=== PATIENT | female | born 2000 | race Caucasian/White ===

== ENCOUNTER → 2022-04-26 | Outpatient (CLI) | payer OTHER ==
--- NOTE | 2022-04-26 12:34 | US ---
EXAMINATION TYPE: US gallbladder DATE OF EXAM: 04/26/2022 COMPARISON: NONE CLINICAL HISTORY: R10.11 right upper quad pain. TECHNIQUE: Multiple sonographic images of the right upper quadrant are obtained. FINDINGS: EXAM MEASUREMENTS: Liver Length: 11.7 cm Gallbladder Wall: 0.3 cm CBD: 0.5 cm Right Kidney: 11.0 x 3.5 x 5.3 cm Pancreas: Obscured by bowel gas Liver: wnl , no concerning mass. Echogenicity is within normal limits. Gallbladder: No stones seen. No pericholecystic fluid or wall thickening. Evidence for sonographic Bowen's sign: No CBD: wnl Right Kidney: No hydronephrosis or masses seen. No shadowing calculi. IMPRESSION: Unremarkable right upper quadrant ultrasound.
== END | disposition home or self-care (01) ==
LOC: RADUSWWP 12:09
PROVIDERS: ATTEND Surgery Plastic and Reconstructive Surgery
DX: R10.11 Right upper quadrant pain (principal)
CPT/HCPCS: 76705

== ENCOUNTER → 2022-05-20 | Outpatient (CLI) | payer OTHER ==
--- NOTE | 2022-05-20 15:24 | NM ---
EXAMINATION TYPE: NM hepatobiliary w EF DATE OF EXAM: 05/20/2022 COMPARISON: Gallbladder ultrasound 04/26/2022 HISTORY: K82.8 DISEASES OF GALLBLADDER TECHNIQUE: After the intravenous administration of 4.26 mCi Tc 99m Mebrofenin hepatobiliary scintigra phy is performed. Immediate images post injection. FINDINGS: There is satisfactory initial accumulation of tracer by the liver. The gallbladder is visualized wit hin 8 minutes. The small bowel activity is noted within 22 minutes. At one hour 8 ounces of oral en sure plus is given to mimic CCK and gallbladder ejection fraction is calculated at 25 %, which is abn ormal. Therefore there is no scintigraphic evidence of cystic or common bile duct obstruction to sug gest acute cholecystitis. IMPRESSION: 1. No evidence for cystic duct obstruction. 2. Gallbladder ejection fraction of 25% consistent with gallbladder dyskinesia.
== END | disposition home or self-care (01) ==
LOC: RADNMMAIN 13:01
PROVIDERS: ATTEND Surgery Plastic and Reconstructive Surgery
DX: K82.8 Other specified diseases of gallbladder (principal)
CPT/HCPCS: 78226; A9537

== ENCOUNTER → 2022-06-22 | Outpatient (CLI) | payer OTHER ==
[2022-06-22 18:37] LABS: HCT 37.9 % (37.2-46.3); HGB 12.5 g/dL (12.0-15.0); MCH 27.6 pg (27.0-32.0); MCV 83.7 fL (80.0-97.0); Mean Platelet Volume 11.7 fL (9.5-12.2); NRBC Per 100 WBC 0 /100 WBCS (0.0-0.0); Platelet Count 285 X 10*3/uL (140-440); RBC 4.53 X 10*6/uL (4.10-5.20); RDW 13.5 % (11.5-14.5); WBC 7.07 X 10*3/uL (4.50-10.00)
== END | disposition home or self-care (01) ==
LOC: LABPAT 13:10
PROVIDERS: ATTEND Anesthesiology
DX: Z01.812 Encounter for preprocedural laboratory examination (principal)
CPT/HCPCS: 85027

== ENCOUNTER 2022-06-25 08:24 | Day surgery (SDC) | payer OTHER ==
[2022-06-21 15:08] VITALS: BMI 42.3
--- NOTE | 2022-06-25 05:40 | P.GSHP ---
History of Present Illness H&P Date: 06/25/22 CHIEF COMPLAINT: Cholecystitis HISTORY OF PRESENT ILLNESS: The patient is a 21-year-old female who presents with history of epigastric including right upper quadrant abdominal pain. She underwent diagnostic studies for her gallbladder. Separately her clinical picture was consistent with cholecystitis. Now she presents for surgical intervention. PAST MEDICAL HISTORY: Please see list PAST SURGICAL HISTORY: Please see list MEDICATIONS: Please see list ALLERGIES: Please see list SOCIAL HISTORY: Please see list FAMILY HISTORY: Please see list REVIEW OF ORGAN SYSTEMS: CONSTITUTIONAL: No reports of fevers or chills. HEENT: Denies any troubles with the vision or hearing. ENDOCRINE: No reports of hypothyroidism. No diabetes. RESPIRATORY: No recent pneumonias. CARDIOVASCULAR: Denies chest pain or palpitations GI: No blood in stools or constipation. MUSCULOSKELETAL: Has occasional joint pain including back pain. NEURO: No seizure disorders or headaches. No recent stroke. PSYCH: No depression or suicidal ideation. GENITOURINARY: No active blood in urine. No urinary hesitancy. HEMATOLOGIC: No personal or family history of DVTs or pulmonary emboli. SKIN: No skin cancer. PHYSICAL EXAM: VITAL SIGNS: Afebrile vital signs stable GENERAL: Well-developed pleasant in no acute distress. HEENT: No scleral icterus. Extraocular movements grossly intact. Moist buccal mucosa. NECK: Supple without lymphadenopathy. CHEST: Unlabored respirations. Equal bilateral excursions. CARDIOVASCULAR: Regular rate regular rhythm rhythm. Distal 2+ pulses. ABDOMEN: Soft, nondistended. Tender along the epigastrium and right upper quadrant. MUSCULOSKELETAL: No clubbing, cyanosis, or edema. NEURO: Cranial nerves II to XII within normal limits. No focal or lateralizing signs. PSYCH: Alert and oriented to person, place and time. SKIN: Well-perfused good skin turgor. ASSESSMENT: 1. Epigastric and right upper quadrant abdominal pain 2. Chronic cholecystitis 3. Symptomatic gallstones. PLAN: 1. Will need a robotic cholecystectomy possible open. Benefits and risks were described. 2. Heparin for DVT prophylaxis 5000 units. 3. Antibiotic prophylaxis. 4. CBC and CMP on day of procedure 5. Non-narcotic pre and post op pain management reviewed. 6. Indocyanine green for biliary imaging. Past Medical History Past Medical History: GERD/Reflux Additional Past Medical History / Comment(s): Gallbladder disorder. History of Any Multi-Drug Resistant Organisms: None Reported Past Surgical History: No Surgical Hx Reported Past Anesthesia/Blood Transfusion Reactions: No Reported Reaction Past Psychological History: No Psychological Hx Reported Smoking Status: Never smoker Past Alcohol Use History: None Reported Past Drug Use History: None Reported - Past Family History Brother(s) Family Medical History: Cancer Medications and Allergies Home Medications Medication Instructions Recorded Confirmed Type Etonogestrel/Ethinyl Estradiol 1 ring VAGINAL Q30D 05/31/22 06/21/22 History [Nuvaring Vaginal Ring] Omeprazole 40 mg PO QAM 05/31/22 06/21/22 History Allergies Allergy/AdvReac Type Severity Reaction Status Date / Time No Known Allergies Allergy Verified 06/21/22 14:56
[~2022-06-25 08:24] MED LIST: ACETAMINOPHEN TAB 500 MG TAB PO PRN; DEXAMETHASONE SOD PHOSPHATE 4 MG/ML 1 ML VIAL IV ONE; GABAPENTIN 300 MG CAP PO PRN; HEPARIN SODIUM,PORCINE/PF 5,000 UNIT/0.5 ML SYRINGE SQ PRN; INDOCYANINE GREEN 25 MG VIAL IV PRN; INDOCYANINE GREEN 25 MG VIAL IV STA; LACTATED RINGERS 1,000 ML IV SCH; MELOXICAM 7.5 MG TAB PO PRN; MIDAZOLAM 2 MG/2 ML VIAL IV PRN; ONDANSETRON 4 MG/2 ML VIAL IVP ONE; SCOPOLAMINE 1 MG/72 HR PATCH TRANSDERM ONE; SCOPOLAMINE 1 MG/72 HR PATCH TRANSDERM PRN; ceFAZolin 3 GM in SODIUM CHLORIDE 0.9% 100 ML IVPB PRN
[2022-06-25] MEDS ORDERED: LIDOCAINE 1% (10MG/ML) FOR IV START INTRADERMA ONE (09:15)
[2022-06-25 09:26] LABS: Basophils % (A) 0 %; Eosinophils # (A) 0.1 k/uL (0-0.7); Eosinophils % (A) 2 %; HCT 37.6 % (34.0-46.0); HGB 12.9 gm/dL (11.4-16.0); Lymphocytes # (A) 1.6 k/uL (1.0-4.8); Lymphocytes % (A) 29 %; MCH 28.1 pg (25.0-35.0); MCHC 34.4 g/dL (31.0-37.0); MCV 81.7 fL (80.0-100.0); Mean Platelet Volume 8.5; Monocytes # (A) 0.3 k/uL (0-1.0); Monocytes % (A) 5 %; Neutrophils # (A) 3.5 k/uL (1.3-7.7); Neutrophils % (A) 62 %; Platelet Count 237 k/uL (150-450); RDW 13.3 % (11.5-15.5); WBC 5.6 k/uL (3.8-10.6)
[2022-06-25 09:39] LABS: ALT 17 U/L (4-34); AST 19 U/L (14-36); African American GFR (CKD) >90 (>60 ml/min/1.73 sqM); Albumin 3.9 g/dL (3.5-5.0); Alkaline Phosphatase 77 U/L (38-126); Anion Gap 4 mmol/L; Blood Urea Nitrogen 13 mg/dL (7-17); Calcium 8.9 mg/dL (8.4-10.2); Carbon Dioxide 26 mmol/L (22-30); Chloride 109 mmol/L (98-107); Glucose 86 mg/dL (74-99); Non-African American GFR(CKD) >90 (>60 ml/min/1.73 sqM); Potassium 3.9 mmol/L (3.5-5.1); Sodium 139 mmol/L (137-145); Total Bilirubin 0.8 mg/dL (0.2-1.3); Total Protein 6.7 g/dL (6.3-8.2)
[2022-06-25] MEDS ORDERED: PROPOFOL 10 MG/ML 20 ML VIAL IV ONE (10:59)
[2022-06-25] MEDS ORDERED: fentaNYL (PF) 50 MCG/ML 2 ML AMP ONE (10:59)
[2022-06-25] MEDS ORDERED: SUCCINYLCHOLINE CHLORIDE 200 MG/10 ML VIAL IV ONE (10:59)
[2022-06-25] MEDS ORDERED: ROCURONIUM 10 MG/ML (5 ML VIAL) IV ONE (10:59)
[2022-06-25] MEDS ORDERED: GLYCOPYRROLATE 0.2 MG/ML 2 ML VIAL ONE (10:59)
[2022-06-25] MEDS ORDERED: HYDROmorphone (PF) 1 MG/ML ONE (10:59)
[2022-06-25] MEDS ORDERED: KETOROLAC 15 MG/ML 1 ML VIAL ONE (10:59)
[2022-06-25] MEDS ORDERED: LIDOCAINE 2% INJ 20 MG/ML (2 ML VIAL) ONE (10:59)
[2022-06-25] MEDS ORDERED: MIDAZOLAM 2 MG/2 ML VIAL ONE (10:59)
[2022-06-25] MEDS ORDERED: NEOSTIGMINE 1 MG/ML 10 ML VIAL ONE (10:59)
[2022-06-25] MEDS ORDERED: LIDOCAINE 1%-EPI 1:100,000 20 ML VIAL SQ ONE ×2 (11:14→11:24)
[2022-06-25] MEDS ORDERED: LACTATED RINGERS 1,000 ML IV ONE (12:00)
[2022-06-25 12:24] VITALS: TEMP 97.9
[2022-06-25] MEDS: HYDROmorphone 0.5 MG/0.5 ML SYRINGE IVP PRN ×2 (12:36→12:50)
--- NOTE | 2022-06-25 12:39 | P.OP ---
Date of Procedure: 06/25/22 Description of Procedure: SURGEON: VERONICA CARBALLO MD PREOPERATIVE DIAGNOSES: 1. Chronic cholecystitis 2. Right upper quadrant abdominal pain 3. Family history gallbladder disease 4. Gastroesophageal reflux disease 5. Morbid obesity due to excess calories, BMI 42.2 POSTOPERATIVE DIAGNOSES: 1. Chronic cholecystitis 2. Right upper quadrant abdominal pain 3. Family history gallbladder disease 4. Gastroesophageal reflux disease 5. Morbid obesity due to excess calories, BMI 42.2 OPERATION: Robotic-assisted da Essie Xi laparoscopic cholecystectomy, multiport with FIREFLY ESTIMATED BLOOD LOSS: 5 mL. SPECIMENS REMOVED: Gallbladder. COMPLICATIONS: None. OPERATIVE FINDINGS: 1. Common bile duct within normal limits INDICATIONS: The patient is a 21-year-old female who presents with chronic cholecystitis. Robotic assisted laparoscopic approach was described. Benefits and risks of the procedure including but not limited to bleeding, infection, injury to the biliary tree was described. Informed consent was obtained. DESCRIPTION OF PROCEDURE: Patient was brought to the operating room, placed in supine position. After general induction, the abdomen had been prepped and draped in standard sterile fashion. The robotic da Essie XI system was primed. After a timeout protocol was performed, the patient had been prepped and draped in standard sterile fashion. The patient was injected with indocyanine green. A 5 mm 0 degrees laparoscopic trocar entry was performed along the left upper quadrant. The abdomen insufflated to 15 mmHg pressure which was tolerated well. Diagnostic laparoscopy demonstrated no injury to bowel viscera or mesentery. The liver surface was unremarkable. Next, two 8 mm robotic ports were placed along the right upper abdomen. The camera 8-mm port was maintained along the epigastrium. Another 8 mm port was placed along the left upper abdominal wall. Please note that the ports were placed at least 10 to 15 cm away from the target anatomy of the gallbladder. The robot was docked along the left lateral abdomen. The patient was repositioned in reverse Trendelenburg position. Using a grasper for arm 3, a grasper for arm 4, including hook cautery for arm 1, the robotic system was docked and primed as described. Instruments were interchanged by the customer care assistant including hook cautery, Bovie cautery and clip appliers. I had sat at the console. Next attention was brought to the infundibulum and cystic structures. The infundibulum and cystic duct were dissected free from surrounding tissues. The cystic duct was isolated. FIREFLY was used to identify the cystic artery and cystic structures. A critical view of safety was obtained. Large PLASTIC clips were used throughout the entire case. Using a clip tire changer aircraft, 2 clips were placed at the junction of the infundibulum and cystic duct. The cystic duct was divided between clips. Next, the cystic artery was similarly clipped and cauterized. Electro-Bovie cautery was used to remove the gallbladder from the hepatic fossa. Hemostasis was checked and found to be adequate. The robot was undocked. I re-scrubbed into the case. Using a 10 mm Endo Catch bag via the left upper quadrant incision, the specimen was removed from the abdominal cavity. All pneumoperitoneum instruments were evacuated from the abdominal cavity. The incisions were reapproximated using 4-0 Monocryl in an interrupted subcuticular fashion. Fascial defects were less than 8 mm in size. Please note along the trocar sites, local anesthetic was placed as a field block prior to insertion of all instruments. Liquid glue was applied to the skin. At the end of the procedure needle, sponge, and instrument count had been verified correct by the surgical dressing maker. The patient was transferred to postanesthesia care unit in stable condition. Intraoperative films were shared with the patient's family. Plan - Discharge Summary Discharge Rx Participant: No New Discharge Prescriptions: New Ibuprofen [Motrin] 600 mg PO Q8HR PRN #30 tab PRN Reason: Pain Simethicone [Gas-X] 125 mg PO AC-TID PRN #20 capsule PRN Reason: Pain Acetaminophen Tab [Tylenol Tab] 1,000 mg PO Q6HR PRN #30 tablet PRN Reason: Pain Continue Omeprazole 40 mg PO QAM Etonogestrel/Ethinyl Estradiol [Nuvaring Vaginal Ring] 1 ring VAGINAL Q30D Discharge Medication List Etonogestrel/Ethinyl Estradiol [Nuvaring Vaginal Ring] 1 ring VAGINAL Q30D 05/31/22 [History] Omeprazole 40 mg PO QAM 05/31/22 [History] Acetaminophen Tab [Tylenol Tab] 1,000 mg PO Q6HR PRN #30 tablet 06/25/22 [Rx] Ibuprofen [Motrin] 600 mg PO Q8HR PRN #30 tab 06/25/22 [Rx] Simethicone [Gas-X] 125 mg PO AC-TID PRN #20 capsule 06/25/22 [Rx] Follow up Appointment(s)/Referral(s): Veronica Carballo MD [STAFF PHYSICIAN] - 06/29/22 ([facility]) Patient Instructions/Handouts: *[facility] - Scopalamine Patch Instructions, Low Fat Diet (DC), *[facility] - Laparoscopic Cholecystectomy Discharge Instructions, *[facility] - Managing Your Pain After Surgery Without Opioids Activity/Diet/Wound Care/Special Instructions: Recommend low-fat diet for the next 2 days. No lifting over 10 pounds in 2 weeks until Jul 09. December shower. No bath tub soaks for two weeks until Jul 09 Diet as tolerated. Use Tylenol, simethicone and ibuprofen or Aleve scheduled for the next 24-48 hours for best pain relief. Use ice along incisions for today to prevent swelling. Discharge Disposition: HOME SELF-CARE
[2022-06-25 12:47] VITALS: RESP 16
[2022-06-25 13:50] VITALS: BP 116/78; PULSE 52
== END 2022-06-25 15:25 | disposition home or self-care (01) ==
LOC: OR 08:24
PROVIDERS: ATTEND Surgery Plastic and Reconstructive Surgery
DX: K81.1 Chronic cholecystitis (principal); K21.9 Gastro-esophageal reflux disease without esophagitis; E66.01 Morbid (severe) obesity due to excess calories; Z68.41 Body mass index [BMI] 40.0-44.9, adult; Z79.3 Long term (current) use of hormonal contraceptives
CPT/HCPCS: 81025; 88304; 80053; 85025; 47563; J2250; J0330; J1100; J2710; J0690; J2405; J3010; J1170 ×2; J1885; J2704; J2001

== ENCOUNTER 2023-01-12 09:24 | Day surgery (SDC) | payer OTHER ==
[~2023-01-12 09:24] MED LIST changes: -ACETAMINOPHEN TAB 500 MG TAB PO PRN; -DEXAMETHASONE SOD PHOSPHATE 4 MG/ML 1 ML VIAL IV ONE; -GABAPENTIN 300 MG CAP PO PRN; -HEPARIN SODIUM,PORCINE/PF 5,000 UNIT/0.5 ML SYRINGE SQ PRN; -INDOCYANINE GREEN 25 MG VIAL IV PRN; -INDOCYANINE GREEN 25 MG VIAL IV STA; +LIDOCAINE 1% (10MG/ML) FOR IV START INTRADERMA PRN; -MELOXICAM 7.5 MG TAB PO PRN; -MIDAZOLAM 2 MG/2 ML VIAL IV PRN; -ONDANSETRON 4 MG/2 ML VIAL IVP ONE; -SCOPOLAMINE 1 MG/72 HR PATCH TRANSDERM ONE; -SCOPOLAMINE 1 MG/72 HR PATCH TRANSDERM PRN; -ceFAZolin 3 GM in SODIUM CHLORIDE 0.9% 100 ML IVPB PRN
--- NOTE | 2023-01-12 09:48 | P.GSHP ---
History of Present Illness H&P Date: 01/12/23 CHIEF COMPLAINT: GERD and colon screen HISTORY OF PRESENT ILLNESS: The patient is a 22-year-old female who presents with gastroesophageal reflux disease and change in bowel habits Upper and lower endoscopy were offered for further evaluation and management. PAST MEDICAL HISTORY: Please see list. PAST SURGICAL HISTORY: Please see list. MEDICATIONS: Please see list. ALLERGIES: Please see list. SOCIAL HISTORY: No illicit drug use FAMILY HISTORY: No reports of Crohn disease or ulcerative colitis. REVIEW OF ORGAN SYSTEMS: CONSTITUTIONAL: No reports of fevers or chills. GI: Denies any blood in stools or constipation. PHYSICAL EXAM: VITAL SIGNS: Stable GENERAL: Well-developed pleasant in no acute distress. HEENT: No scleral icterus. Extraocular movements grossly intact. Moist buccal mucosa. NECK: Supple without lymphadenopathy. CHEST: Unlabored respirations. Equal bilateral excursions. CARDIOVASCULAR: Regular rate and rhythm. Distal 2+ pulses. ABDOMEN: Soft, nondistended. MUSCULOSKELETAL: No clubbing, cyanosis, or edema. ASSESSMENT: 1. Gastroesophageal reflux disease 2. Change in bowel habits PLAN: 1. Recommend proceeding with an upper and lower endoscopy Past Medical History Past Medical History: GERD/Reflux History of Any Multi-Drug Resistant Organisms: None Reported Past Surgical History: Cholecystectomy Past Anesthesia/Blood Transfusion Reactions: No Reported Reaction Smoking Status: Never smoker - Past Family History Father Family Medical History: Cancer Additional Family Medical History / Comment(s): pancreatic Medications and Allergies Home Medications Medication Instructions Recorded Confirmed Type Etonogestrel/Ethinyl Estradiol 1 ring VAGINAL Q30D 05/31/22 01/12/23 History [Nuvaring Vaginal Ring] Omeprazole 40 mg PO QAM 05/31/22 01/12/23 History Acetaminophen Tab [Tylenol Tab] 1,000 mg PO Q6HR PRN #30 tablet 06/25/22 01/12/23 Rx FLUoxetine HCL [PROzac] 10 mg PO DAILY 01/11/23 01/12/23 History Loratadine [Claritin] 10 mg PO DAILY 01/11/23 01/12/23 History Mometasone Furoate [Nasonex 50 MCG] 1 spray NASAL DAILY 01/11/23 01/12/23 History Allergies Allergy/AdvReac Type Severity Reaction Status Date / Time No Known Allergies Allergy Verified 01/12/23 09:33
[2023-01-12 09:50] VITALS: TEMP 98.3
[2023-01-12] MEDS ORDERED: LIDOCAINE 2% INJ 20 MG/ML (2 ML VIAL) ONE (10:25)
[2023-01-12] MEDS ORDERED: PROPOFOL 10 MG/ML 20 ML VIAL IV ONE (10:25)
[2023-01-12 11:21] VITALS: RESP 16
[2023-01-12 12:00] VITALS: BP 122/79; PULSE 48
--- NOTE | 2023-01-12 12:11 | P.PCN ---
Date of Procedure: 01/12/23 Description of Procedure: PREOPERATIVE DIAGNOSIS: Gastroesophageal reflux disease. Morbid obesity. POSTOPERATIVE DIAGNOSIS: Gastroesophageal reflux disease. Morbid obesity. Gastritis. Diaphragmatic hiatal hernia OPERATION: Esophagogastroduodenoscopy with biopsies along antrum, duodenum SURGEON: Veronica Carballo MD ANESTHESIA: MAC. INDICATIONS: The patient is a 22-year-old female who presents with reflux disease. Benefits and risks of the procedure were described. Informed consent was obtained. DESCRIPTION: The patient was brought into the endoscopy suite and laid in the left lateral decubitus position. An Olympus gastroscope was passed along the posterior oropharynx down to the distal esophagus where the squamocolumnar junction was encountered at 39 cm from the incisors. The stomach was entered and no bile reflux was found. Additional findings are listed below. Biopsies with cold forceps were obtained of the antrum. The first through third portion of the duodenum was examined. Retroflexion of the scope confirmed Hill grade 1 lower esophageal valve. The squamocolumnar junction demonstrated LA grade A erosive esophagitis. The stomach was desufflated. The patient tolerated the procedure well. FINDINGS: Squamocolumnar junction 39 cm from the incisors. Diaphragmatic hiatus at 40 cm. Hiatal hernia, 1 cm Hill grade 1 lower esophageal valve. LA grade B erosive esophagitis. Biopsies obtained of duodenum Chronic gastritis RECOMMENDATIONS: Upper endoscopy as needed.
--- NOTE | 2023-01-12 12:15 | P.PCN ---
Date of Procedure: 01/12/23 Description of Procedure: PREOPERATIVE DIAGNOSIS: Abnormal stool function Change in bowel habits POSTOPERATIVE DIAGNOSIS: Microscopic colitis OPERATION: Colonoscopy to the cecum, ileocecal valve and appendiceal orifice. Colonoscopy with random cold forceps biopsies for microscopic colitis SURGEON: Veronica Carballo MD. ANESTHESIA: MAC. INDICATIONS: The patient is a 22-year-old female who presents with altered stools including change in bowel habits. Benefits and risks were described and informed consent was obtained. DESCRIPTION OF PROCEDURE: The patient had undergone Miralax. The patient had been brought into the operating room and laid in the left lateral decubitus position. After adequate intravenous sedation, the rectum was examined with 2% lidocaine jelly. No external hemorrhoids were encountered. The rectal tone was within normal limits. No lesions were palpated in the rectal vault. An Olympus colonoscope was advanced until the cecum, ileocecal valve and appendiceal orifice were clearly viewed. The prep was excellent. No scattered diverticulosis was encountered. No colonic polyps were found. Cold forceps biopsies randomly were obtained for microscopic colitis. Retroflexion of the scope demonstrated grade 1 internal hemorrhoids without active bleeding or inflammation. The colon was desufflated. The patient had tolerated the procedure well. Withdrawal time was over 6 minutes. FINDINGS: Aronchick preparation quality scale 1 (1-5) Internal hemorrhoids, grade 1 No external prolapsed hemorrhoids. No arteriovenous malformations. No adenomatous polyps. Cold forceps biopsies obtained for microscopic colitis RECOMMENDATIONS: Lower endoscopy as needed Plan - Discharge Summary Discharge Rx Participant: No New Discharge Prescriptions: Continue Loratadine [Claritin] 10 mg PO DAILY FLUoxetine HCL [PROzac] 10 mg PO DAILY Mometasone Furoate [Nasonex 50 MCG] 1 spray NASAL DAILY Omeprazole 40 mg PO QAM Etonogestrel/Ethinyl Estradiol [Nuvaring Vaginal Ring] 1 ring VAGINAL Q30D Acetaminophen Tab [Tylenol] 1,000 mg PO Q6HR PRN #30 tablet PRN Reason: Pain Discharge Medication List Etonogestrel/Ethinyl Estradiol [Nuvaring Vaginal Ring] 1 ring VAGINAL Q30D [History] Omeprazole 40 mg PO QAM 05/31/22 [History] Acetaminophen Tab [Tylenol] 1,000 mg PO Q6HR PRN #30 tablet 06/25/22 [Rx] FLUoxetine HCL [PROzac] 10 mg PO DAILY 05/30/23 [History] Loratadine [Claritin] 10 mg PO DAILY 01/11/23 [History] Mometasone Furoate [Nasonex 50 MCG] 1 spray NASAL DAILY 01/11/23 [History] Follow up Appointment(s)/Referral(s): Veronica Carballo MD [STAFF PHYSICIAN] - 02/01/23 1:45 pm Patient Instructions/Handouts: Gastritis (DC), GERD (Gastroesophageal Reflux Disease) (ED) Discharge Disposition: HOME SELF-CARE
== END 2023-01-12 12:22 | disposition home or self-care (01) ==
LOC: ORWHC2ENDO 09:24
PROVIDERS: ATTEND Surgery Plastic and Reconstructive Surgery
DX: K29.50 Unspecified chronic gastritis without bleeding (principal); K21.00 Gastro-esophageal reflux disease with esophagitis, without bleeding; K44.9 Diaphragmatic hernia without obstruction or gangrene; K64.0 First degree hemorrhoids; E66.01 Morbid (severe) obesity due to excess calories; Z90.49 Acquired absence of other specified parts of digestive tract; Z79.3 Long term (current) use of hormonal contraceptives; Z79.51 Long term (current) use of inhaled steroids; Z68.43 Body mass index [BMI] 50.0-59.9, adult; Z79.899 Other long term (current) drug therapy
CPT/HCPCS: 81025; 88305; 45380; 43239; J2704; J2001

== ENCOUNTER → 2023-12-26 | Outpatient (CLI) | payer OTHER ==
--- NOTE | 2023-12-26 14:36 | CT ---
EXAMINATION TYPE: CT abdomen pelvis w con DATE OF EXAM: 12/26/2023 COMPARISON: None HISTORY: pelvic and perineal pain CT DLP: 4434.2 mGycm CONTRAST: CT scan of the abdomen and pelvis is performed with Oral Contrast and with IV Contrast, patient injec aleksandr with 100 ml mL of Isovue 300. FINDINGS: LUNG BASES-: No visible nodule. No infiltrate. LIVER/GB: The gallbladder is surgically absent. No space occupying hepatic lesion. Biliary tree is of normal caliber. PANCREAS: No inflammation. No distinct mass. SPLEEN: No splenic enlargement. No lesion seen. ADRENALS: No nodule. No thickening. KIDNEYS/BLADDER: No hydronephrosis. No nephrolithiasis. No distinct renal mass. Urinary bladder g rossly unremarkable. BOWEL: Normal appendix. Normal bowel caliber. No inflammation. GENITAL ORGANS: No gross abnormality. LYMPH NODES: No greater than 1cm abdominal or pelvic lymph nodes are appreciated. AORTA: No significant abnormality. OSSEOUS STRUCTURES: No significant abnormality is seen. OTHER: No significant additional abnormality is seen. IMPRESSION: 1. No significant abnormality to account for patient's symptoms.
--- NOTE | 2023-12-26 16:25 | US ---
EXAMINATION TYPE: US pelvic complete DATE OF EXAM: 12/26/2023 COMPARISON: NONE CLINICAL INDICATION: Female, 23 years old with history of R10.31 RLQ PAIN; Intermittent RLQ pain x 1 month; Hx AUB since menarche - skips cycles for months. TECHNIQUE: . Transabdominal sonographic images of the pelvis were acquired. Transvaginal sonographi c images were not medically necessary and declined by patient Date of LMP: 2 weeks ago EXAM MEASUREMENTS: Uterus: 8.1 x 2.6 x 3.9 cm Endometrial Stripe: 0.2 cm Right Ovary: 4.2 x 2.6 x 2.1 cm Left Ovary: 3.2 x 3.3 x 1.6 cm 1. Uterus: Anteverted wnl 2. Endometrium: wnl 3. Right Ovary: wnl 4. Left Ovary: wnl 5. Bilateral Adnexa: wnl 6. Posterior cul-de-sac: wnl IMPRESSION: 1. No evidence for acute process. 2. Endometrium within normal limits for thickness.
== END | disposition home or self-care (01) ==
LOC: RADCTMAIN 12:39
PROVIDERS: ATTEND Surgery Plastic and Reconstructive Surgery
DX: R10.2 Pelvic and perineal pain (principal); R10.31 Right lower quadrant pain
CPT/HCPCS: 76856; 74177; Q9967